=== PATIENT | female | born 1955 | race Caucasian/White ===

== ENCOUNTER 2020-02-09 16:28 | Emergency (ER) | payer BC, SELFPAY ==
--- NOTE | 2020-02-09 16:31 | XR_ITS ---
WS: [id number] HAND LEFT TECHNIQUE: 3 views of the left hand CLINICAL INFORMATION: injury COMPARISON: None. FINDINGS: Normal metacarpals. Normal MCP joint. Metacarpal heads are normal in appearance. Normal PIP and DIP j oints. No evidence of acute fracture or dislocation. Radiocarpal joint: Normal. Carpal bones: Normal. XR/XR hand LT min 3V* [id number] IMPRESSION: Normal left hand.
[2020-02-09 16:35] VITALS: BP 143/73; PULSE 82; RESP 16; TEMP 36.9; O2SAT 99; BMI 18.9
--- NOTE | 2020-02-09 16:41 | W.ED.UPPEXIN ---
HPI - Extremity Injury (Upper) General: Chief Complaint: Extremity Injury, Upper Stated Complaint: fall/left finger pain Time Seen by Provider: 02/09/20 16:36 Source: patient Mode of arrival: ambulatory Limitations: no limitations History of Present Illness: HPI narrative: 64-year-old female who fell on her stairs last night and injured her left ring and middle finger. Patient denies any other injuries. States her ring finger hurts the worst at the PIP joint. She rates the pain a 3 out of 10. She still has her rings in place as well. complaint: injury to: left Onset (ago): day(s) Other Extremity Injury: Left: fingers Other injuries: none Handedness: right Place: home Severity: mild Relieving factors: none Exacerbating factors: none Review of Systems Const: Denies: fever, chills, body aches or change in appetite Eyes: Denies: blurry vision or eye discomfort ENMT: Denies: throat pain or dental pain Card: Denies: chest pain Resp: Denies: shortness of breath GI: Denies: abdominal pain, nausea, vomiting or diarrhea : Denies: painful urination Musc: Reports: extremity pain Skin/Breast: Denies: rash Neuro: Denies: headache Psych: Denies: depression Fabián/Lymph: Denies: easy bruising All/Imm: Denies: hives PFS ED PFSH: Social History Smoking and tobacco status: current every day smoker Physical Exam Const: COMMON NORMALS: no apparent distress, oriented x3 and healthy appearing HENMT: COMMON NORMALS: normocephalic and head/scalp atraumatic HEAD & SCALP: normocephalic and atraumatic Eye: COMMON NORMALS: PERRL and EOMs intact bilaterally PUPIL: Yes PERRL Neck/C-Spine: COMMON NORMALS: full ROM and supple Chest: COMMONS NORMALS: inspection of chest normal and palpation of chest normal Resp: COMMON NORMALS: normal respiratory effort, no retractions, no use of accessory muscles and clear to auscultation bilaterally AUSCULTATION: clear to auscultation bilaterally Cardio: COMMON NORMALS: regular rate, regular rhythm and no murmurs RATE: regular rate RHYTHM: regular rhythm GI: COMMON NORMALS: normal to inspection, nondistended, normoactive bowel sounds, soft to palpation, non-tender and no masses PALPATION: Yes soft Extremity: COMMON NORMALS: normal to inspection and full ROM NARRATIVE EXTREMITY EXAM: Tenderness to the left ring finger with swelling to knuckle joint Neuro: COMMON NORMALS: oriented x3, moves all extremities and no focal motor deficits Psych: COMMON NORMALS: mental status grossly normal, thought process normal and cooperative THOUGHT PROCESS: normal thought process Skin: COMMON NORMALS: no rashes or lesions noted and no wounds GENERAL SKIN EXAM: no rashes or lesions noted Course Vital Signs: Vital signs: Vital Signs Temperature 98.4 F 02/09/20 16:35 Pulse Rate 82 02/09/20 16:35 Respiratory Rate 16 02/09/20 16:35 Blood Pressure 143/73 02/09/20 16:35 Pulse Oximetry 99 02/09/20 16:35 MDM - Extremity Injury (Upper) MDM Narrative: Medical decision making narrative: Patient presents here with a finger sprain to her left middle finger. Did have to remove both of her rings with ring cutter. Patient placed in a finger splint is to ice. She is stable for discharge. Imaging Data^: xr l hand: Attestation: I personally reviewed and interpreted this imaging study as follows: My impression: no acute abnormality Discharge Plan Discharge Patient Disposition: Home, Self-Care Clinical Impression: Finger sprain Qualifiers: Encounter type: initial encounter Finger: ring finger Sprain of finger site: interphalangeal joint Laterality: left Qualified Code(s): S63.635A - Sprain of interphalangeal joint of left ring finger, initial encounter Condition: Stable Discharge Orders: Discharge Order (Routine); Ordered 02/09/20 Ordered By: Supriya Isidro Referrals: Stas Martins MD [Primary Care Provider] - Discharge Diet: Advance as tolerated Discharge Activity: Resume usual activity Patient Instructions: Finger Sprain (ED) Coding Level of Care Code ED Public Affairs Manager for Nel Chávez Exam Comprehensive
[2020-02-09 17:44] VITALS: BP 133/70; PULSE 80; RESP 14; TEMP 36.9; O2SAT 98
== END 2020-02-09 17:43 | disposition home or self-care (01) ==
PROVIDERS: Emergency Provider Emergency Medicine; PCP Family Medicine
DX: S63.635A Sprain of interphalangeal joint of left ring finger, initial encounter (principal); W10.9XXA Fall (on) (from) unspecified stairs and steps, initial encounter; F17.210 Nicotine dependence, cigarettes, uncomplicated
CPT/HCPCS: 12345; 73130; 99281; 99282

== ENCOUNTER → 2022-02-23 10:39 | Outpatient (BNVA) | payer MEDICARE, OTHER, SELFPAY | PROVIDERS: PCP Family Medicine; Visit Provider Podiatrist Foot & Ankle Surgery | DX: M21.612 Bunion of left foot (principal); M21.611 Bunion of right foot; M77.41 Metatarsalgia, right foot; M77.42 Metatarsalgia, left foot; F17.210 Nicotine dependence, cigarettes, uncomplicated | CPT/HCPCS: 73630; 99203; 99204 ==

== ENCOUNTER → 2022-04-06 13:11 | Outpatient (BNVA) | payer MEDICARE, OTHER, SELFPAY | PROVIDERS: PCP Family Medicine; Visit Provider Podiatrist Foot & Ankle Surgery | DX: M79.671 Pain in right foot (principal); M79.672 Pain in left foot; M21.612 Bunion of left foot; M21.611 Bunion of right foot; M77.41 Metatarsalgia, right foot; M77.42 Metatarsalgia, left foot; M76.62 Achilles tendinitis, left leg | CPT/HCPCS: 99214 ==

== ENCOUNTER → 2022-06-08 13:01 | Outpatient (BNVA) | payer MEDICARE, OTHER, SELFPAY | PROVIDERS: PCP Family Medicine; Visit Provider Podiatrist Foot & Ankle Surgery | DX: M77.41 Metatarsalgia, right foot (principal); M77.42 Metatarsalgia, left foot; M76.62 Achilles tendinitis, left leg; M21.612 Bunion of left foot; M21.611 Bunion of right foot | CPT/HCPCS: 99213 ==

== ENCOUNTER → 2023-12-11 11:43 | Outpatient (BNVA) | payer MEDICARE, OTHER, SELFPAY | PROVIDERS: PCP Family Medicine; Visit Provider Podiatrist Foot & Ankle Surgery | DX: G57.61 Lesion of plantar nerve, right lower limb | CPT/HCPCS: 64455; 73630; J1100; J3301; J3490 ==

== ENCOUNTER → 2024-01-08 10:36 | Outpatient (BNVA) | payer MEDICARE, OTHER, SELFPAY | PROVIDERS: PCP Family Medicine; Visit Provider Podiatrist Foot & Ankle Surgery | DX: G57.61 Lesion of plantar nerve, right lower limb (principal) | CPT/HCPCS: 64455; J1100; J3301; J3490 ==

== ENCOUNTER → 2024-02-19 11:27 | Outpatient (BNVA) | payer MEDICARE, OTHER, SELFPAY | PROVIDERS: PCP Family Medicine; Visit Provider Podiatrist Foot & Ankle Surgery | DX: M77.41 Metatarsalgia, right foot; M77.42 Metatarsalgia, left foot | CPT/HCPCS: 64455; J1100; J3301; J3490 ==

== ENCOUNTER → 2024-04-22 11:10 | Outpatient (BNVA) | payer MEDICARE, OTHER, SELFPAY | PROVIDERS: PCP Family Medicine; Visit Provider Podiatrist Foot & Ankle Surgery | DX: G57.61 Lesion of plantar nerve, right lower limb | CPT/HCPCS: 99213 ==

== ENCOUNTER → 2024-07-31 10:05 | Outpatient (BNVA) | payer MEDICARE, OTHER, SELFPAY | PROVIDERS: PCP Family Medicine; Visit Provider Podiatrist Foot & Ankle Surgery | DX: G57.61 Lesion of plantar nerve, right lower limb (principal) | CPT/HCPCS: 64455; J1100; J3301; J3490 ==